=== PATIENT | female | born 1970 | race Caucasian/White ===

== ENCOUNTER 2021-07-30 11:01 | Emergency (ER) | payer MEDICAID ==
[~2021-07-30] VITALS: Ht 165.1 cm; Wt 138.6 kg
[2021-07-30 11:41] VITALS: BP 152/91
== END 2021-07-30 15:35 | disposition home or self-care (01) ==
LOC: ER 11:02
DX: J02.9 Acute pharyngitis, unspecified (principal); R06.02 Shortness of breath; R09.89 Other specified symptoms and signs involving the circulatory and respiratory systems; G89.29 Other chronic pain; Z72.89 Other problems related to lifestyle; Z98.890 Other specified postprocedural states; Z56.0 Unemployment, unspecified
CPT/HCPCS: 87081; 87880; 99283

== ENCOUNTER 2024-08-10 12:19 | Emergency (ER) | payer MEDICAID, OTHER ==
[~2024-08-10] VITALS: Ht 170.2 cm; Wt 120.5 kg
[2024-08-10 12:45] VITALS: BP 149/86; PULSE 73; TEMP 97.5; O2SAT 99
--- NOTE | 2024-08-10 13:40 | Physician Documentation ---
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 She reports that approximately three months ago, she was securing her naked wet during a pseudo-seizure from shower to bedroom and sustained pain to the low back. Sees worker's comp doctor. Expresses frustration today that her pain is inadequately managed. She reports that she is taking naproxen, acetaminophen, and an unknown muscle relaxant. Her pain persists. However, she denies any danger signs to include numbness in the groin, new incontinence, dragging of the foot. Medication Reconciliation Allergies: Coded Allergies: No Known Allergies (Unverified , 08/10/24) Scheduled Gabapentin (Gabapentin), 1 CAP PO Q8H Scheduled PRN Hydrocodone Bit/Acetaminophen (Hydrocodon-Acetaminophen 5-325), 1 TAB PO TID PRN PRN for pain Past Medical History Past Medical History: Thyroid (unspecified), Chronic Back Pain Past Surgical History: orthopedic surgeries Alcohol Use: Occasionally Drug Use: none Lives with: Spouse Lives In: Home Occupation: unemployed Review of Systems ROS As stated above in the HPI, otherwise all systems are reviewed and negative. Physical Exam Physical Exam Vital Signs: Temperature: 97.5, Source: Temporal, Heart Rate: 73, Respiratory Rate: 18, BP: 149/86, Pulse Oximetry: 99, Weight: 120.450 Oxygen Flow Rate: 0 Physical Exam General: Alert, no apparent distress. HEENT: PERRL, EOMI, no injection, moist mucous membranes. Neck: Full range of motion. Respiratory: Lungs clear, no respiratory distress. Chest: No accessory muscle use. Back: No midline tenderness but is diffusely TTP to musculature adjacent to lumbar spine with palpable spasm. Cardiovascular: Regular rate and rhythm, no murmurs. Gastrointestinal: Soft, nontender, nondistended. Bowels sounds present. Extremities: Normal range of motion, no deformity. Neurologic: Oriented x4. Symmetrical patellar reflexes. Psychiatric: Normal mood and affect. Skin: Normal color, warm and dry. No edema, no ecchymosis. Progress Results/Orders Results/Orders Completed Orders - GIANLUCA ESCALANTE NP Ketorolac Trometh 30mg/Ml Vial (Toradol (08/10/24 14:05) Medications Received in ER Medications (Trade) Dose Ordered Sig/Bennie Route PRN Reason Start Time Stop Time Status Last Admin Dose Admin (Toradol inj. 30mg/ml) 30 mg ONCE ONCE IM 08/10/24 14:05 08/10/24 14:06 DC 08/10/24 14:18 30 MG Vital Signs 08/10/24 08/10/24 12:45 14:18 Temp 97.5 Pulse 73 Resp 18 15 B/P (MAP) 149/86 Pulse Ox 99 O2 Flow Rate 0 Medical Decision Making Differential Diagnosis 54-year-old female presented primarily due to concerns for an adequately controlled pain. She denied any danger signs, imaging was not warranted. She ambulated without difficulty although was reporting stiffness and pain to the low back when doing so. Her reflexes were symmetrical. She had no report of new incontinence. She had no paresthesia or dragging of the foot. She is instructed to follow up with the worker's comp provider and return if worse. Departure Time of Disposition: 14:03 Disposition: 01 HOME / SELF CARE / HOMELESS Impression: Primary Impression: Low back pain Qualified Codes: M54.50 - Low back pain, unspecified; G89.29 - Other chronic pain Discharge Instructions: Chronic Back Pain, Back Exercises Additional Instructions: See your worker's comp doctor soon for followup. Try adding gabapentin to your pain management regimen along with lidocaine patches. You got a toradol shot in the ER, so no further NSAIDs x 24 hours (Naproxen, Motrin, Ibuprofen, etc). You are being given a few hydrocodone for sparing occasional use with no driving after use x 6 hrs. These are opioids and have risk of addiction, respiratory depression, and constipation. Take stool softeners when using. Follow through with the planned MRI. Return if worse such as with new incontinence or numbness/tingling in the groin area. Referrals: NO PRIMARY CARE PROVIDER (PCP) Prescriptions Hydrocodone Bit/Acetaminophen (Hydrocodon-Acetaminophen 5-325) 5 Mg-325 Mg Tablet 1 TAB PO TID PRN PRN for pain for 3 Days, #6 TAB Prov: GIANLUCA ESCALANTE NP 08/10/24 Gabapentin (Gabapentin) 100 Mg Capsule 1 CAP PO Q8H for pain for 10 Days, #30 CAP 0 Refills Prov: GIANLUCA ESCALANTE NP 08/10/24 Education Educated: Patient Educated regarding: diagnosis, treatment, prognosis, need for follow up Signature Scribe Signature: no scribe Attestation: The note accurately reflects work and decisions made by me.Gianluca Golden NP 08/10/24 14:51 GIANLUCA ESCALANTE NP Aug 10, 2024 13:40
[2024-08-10] MEDS ORDERED: GABA-530 PO (14:06)
[2024-08-10] MEDS ORDERED: HYDR-3964 PO (14:06)
[2024-08-10 14:18] VITALS: RESP 15
[2024-08-10] MEDS: ketorolac trometh 30MG/ML vial 30 MG/ML VIAL IM ONE (14:18)
== END 2024-08-10 14:23 | disposition home or self-care (01) ==
LOC: ER 12:20
DX: M54.50 Low back pain, unspecified (principal)
CPT/HCPCS: 96372; 99283; J1885

== ENCOUNTER 2024-08-31 12:55 | Emergency (ER) | payer MEDICAID, OTHER ==
[~2024-08-31] VITALS: Ht 165.1 cm; Wt 118.2 kg
[~2024-08-31 12:55] MED LIST: GABA-530 PO
--- NOTE | 2024-08-31 12:56 | Physician Documentation ---
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 She notes that this morning, she was helping him. In the context of this, she sustained lower pelvic pain. Since that time, she has felt that her vagina is falling out. she has also noted some blood when wiping, but does note that this appears to be rectal and that she does have a history of hemorrhoids. She denies chills or fever, chest pain or shortness of breath. She denies numbness in the groin. Medication Reconciliation Allergies: Coded Allergies: No Known Allergies (Unverified , 08/31/24) Scheduled Gabapentin (Gabapentin), 1 CAP PO Q8H Past Medical History Past Medical History: Thyroid (unspecified), Chronic Back Pain Past Surgical History: orthopedic surgeries Alcohol Use: Occasionally Drug Use: none Lives with: Spouse Lives In: Home Occupation: unemployed Review of Systems ROS As stated above in the HPI, otherwise all systems are reviewed and negative. Physical Exam Physical Exam General: Alert, no apparent distress. Neck: Full range of motion. Respiratory: Lungs clear, no respiratory distress. Chest: No accessory muscle use. Cardiovascular: Regular rate and rhythm, no murmurs. Gastrointestinal: Soft, nontender, nondistended. Bowels sounds present. Pelvic: Grade I cystocele. Rectum: Small external hemorrhoid Extremities: Normal range of motion, no deformity. Neurologic: Oriented x4. Psychiatric: Normal mood and affect. Skin: Normal color, warm and dry. No edema, no ecchymosis. Procedures Procedures Pelvic exam done. Normal external female genitalia. Grade I cystocele. No unusual vaginal discharge. Medical Decision Making Additional Comments This is a 54-year-old female who has an upcoming lumbar spine MRI pertinent to her recent onset of low back pain. She denies danger signs such as drragging of a foot, new numbness in the groin, incontinence. She denies IV drug use and has had no fevers. On exam, she was found to have a mild cystocele pertinent to her concerns for pelvic pressure. She is also found to have a small external hemorrhoid, and does report some intermittent bleeding into the toilet. She has a primary care follow up appointment. She will be provided with gabapentin, tizanidine, lidocaine patches for pain. She does also have naproxen at home. She is to return for danger signs. Departure Time of Disposition: 15:06 Disposition: 01 HOME / SELF CARE / HOMELESS Impression: Primary Impression: Cystocele Additional Impression: Lumbar back pain with radiculopathy affecting right lower extremity Discharge Instructions: Lumbar Strain Additional Instructions: Please see your PCP for followup. Request a referral to PT/spinal specialist. Use the prescribed medications. Keep your upcoming MRI appt of the lumbar spine. Return for danger signs such as new incontinence, numbness in the groin, other concerns you're getting worse. See gynecology to discuss your cystocele concerns. (mild bladder prolapse) Referrals: NO PRIMARY CARE PROVIDER (PCP) Prescriptions Tizanidine Hcl (Zanaflex) 2 Mg Tablet 1 TAB PO HS for 30 Days, #30 TAB 0 Refills Prov: GIANLUCA ESCALANTE NP 08/31/24 Lidocaine (Lidocaine) 5 % Adh..patch 1 PATCH TOP DAILY for 30 Days, #30 PATCH 0 Refills Prov: GIANLUCA ESCALANTE NP 08/31/24 Gabapentin (Gabapentin) 100 Mg Capsule 1-2 CAP PO Q8H for pain for 10 Days, #30 CAP 0 Refills Prov: GIANLUCA ESCALANTE NP 08/31/24 Education Educated: Patient Educated regarding: diagnosis, treatment, prognosis, need for follow up Signature Scribe Signature: no scribe Attestation: The note accurately reflects work and decisions made by me.Gianluca Golden NP 08/31/24 13:20 GIANLUCA ESCALANTE NP Aug 31, 2024 12:56
[2024-08-31 13:12] VITALS: TEMP 97.4
[2024-08-31] MEDS ORDERED: LIDO700A47 TOP (15:08)
[2024-08-31] MEDS ORDERED: TIZA-189 PO (15:08)
[2024-08-31] MEDS: ketorolac trometh 30MG/ML vial 30 MG/ML VIAL IM ONE (15:31)
[2024-08-31 15:36] VITALS: BP 152/65; PULSE 70; RESP 16; O2SAT 100
== END 2024-08-31 15:38 | disposition home or self-care (01) ==
LOC: ER 12:56
DX: N81.10 Cystocele, unspecified (principal); M54.16 Radiculopathy, lumbar region; Z56.0 Unemployment, unspecified; Z72.89 Other problems related to lifestyle
CPT/HCPCS: 96372; 99284; J1885

== ENCOUNTER 2024-09-02 13:54 | Outpatient (CLI) | payer OTHER ==
[~2024-09-02 13:54] MED LIST changes: +LIDO700A47 TOP; +TIZA-189 PO
--- NOTE | 2024-09-02 17:38 | RADIOLOGY REPORT ---
PROCEDURE: MR MRI LUMBAR SPINE INDICATION: SPRAIN LUMBAR SPINE Exam Date: 09/02/2024 01:48 PM COMPARISON: None TECHNIQUE: MRI lumbar spine without intravenous contrast. FINDINGS: The lumbar alignment is intact. There are degenerative endplate changes including modic endplate ch anges with anterior and lateral osteophytes throughout the lumbar spine. The visualized distal spinal cord and conus medullaris are within normal limits. The conus medullaris appears to terminate withi n normal limits. The visualized retroperitoneal and paraspinal soft tissues are unremarkable. The following axial levels are detailed below: T12-L1: Unremarkable. L1-L2: Unremarkable. L2-L3: Unremarkable. L3-L4: There is a mild circumferential disc bulge complicated by facet arthropathy associated with mild bilateral neuroforaminal stenosis. No significant central canal stenosis. L4-L5: There is a moderate circumferential disc bulge complicated by facet arthropathy associated w ith mild to moderate bilateral neuroforaminal stenosis. No significant central canal stenosis. L5-S1: There is a moderate circumferential disc bulge complicated by facet arthropathy associated wi th mild to moderate bilateral neuroforaminal stenosis. No significant central canal stenosis. IMPRESSION: 1. Degenerative disease greatest in the lower lumbar spine. No significant central canal stenosis. Neural foraminal stenosis as above. HS:Y
== END 2024-09-02 23:59 | disposition home or self-care (01) ==
LOC: MRI02 13:54
PROVIDERS: ATTEND Physician Assistant Medical
DX: S33.5XXA Sprain of ligaments of lumbar spine, initial encounter (principal); S23.9XXA Sprain of unspecified parts of thorax, initial encounter; S39.011A Strain of muscle, fascia and tendon of abdomen, initial encounter; M47.27 Other spondylosis with radiculopathy, lumbosacral region; M48.07 Spinal stenosis, lumbosacral region; X58.XXXA Exposure to other specified factors, initial encounter; Y93.89 Activity, other specified; Y92.89 Other specified places as the place of occurrence of the external cause; Y99.8 Other external cause status
CPT/HCPCS: 72148

== ENCOUNTER 2024-11-24 21:45 | Emergency (ER) | payer MEDICAID, OTHER ==
[~2024-11-24] VITALS: Ht 165.1 cm; Wt 208.2 kg
[2024-11-24] MEDS ORDERED: PRED20TA PO (22:58)
--- NOTE | 2024-11-24 23:02 | Physician Documentation ---
History of Present Illness ~ General Chief Complaint: Abdominal Pain Stated Complaint: BLADDER ISSUES Time Seen by MD: 22:35 [facility]: [facility] History of Present Illness Initial Comments 54-year-old female who presents to the emergency department for pain management of acute on chronic lower back pain. Secondary complaint of bladder prolapse wh ich is chronic in nature as she is pending referral to [facility] was. Patient saw her primary care physician and received a Toradol injection and was provided a prescription for gabapentin for which she has not obtained. Reports that it has not worked in the past. Clinical suspicion that she is having acute on chronic pain episode at this time along with some situation of life crisis just due to her being ill. No reported fevers, myalgias or recent illness or injury. Medication Reconciliation Allergies: Coded Allergies: No Known Allergies (Unverified , 08/31/24) Scheduled Gabapentin (Gabapentin), 1 CAP PO Q8H Gabapentin (Gabapentin), 1-2 CAP PO Q8H Lidocaine (Lidocaine), 1 PATCH TOP DAILY Tizanidine Hcl (Zanaflex), 1 TAB PO HS Past Medical History Past Medical History: Thyroid (unspecified), Chronic Back Pain Past Surgical History: orthopedic surgeries Alcohol Use: Occasionally Drug Use: none Lives with: Spouse Lives In: Home Occupation: unemployed Review of Systems All Other Systems at this time: Reviewed and Negative Constitutional: Denies: chills, fever Musculoskeletal: Reports: back pain Physical Exam Physical Exam Vital Signs: Temperature: 97.8, Source: Temporal, Heart Rate: 83, Respiratory Rate: 16, BP: 142/93, Pulse Oximetry: 97, Weight: 208.200 Oxygen Flow Rate: 0 General Appearance: alert, WD/WN, moderate distress General Appearance Anxious Head: normal inspection Face: normal inspection Pupils/EOM/Fundus: PERRLA Neck: non-tender Respiratory: no respiratory distress Chest: no accessory muscle use Cardiovascular: normal peripheral pulses Back: muscle spasm, + straight leg raise, other (Left lower lumbar paraspinous); No: vertebral tenderness Extremities: normal range of motion Neurologic: oriented x4 Motor / Sensory: no motor deficit, no sensory deficit Progress Results/Orders Results/Orders Orders - BECKI CHANDRA PAC Prednisone Tablet (Prednisone Tablet) (11/24/24 22:55) Hydrocodone/Apap 5/325mg Tab ([place] 5/32 (11/24/24 22:55) Vital Signs 11/24/24 21:58 Temp 97.8 Pulse 83 Resp 16 B/P (MAP) 142/93 Pulse Ox 97 O2 Flow Rate 0 Medical Decision Making Differential Diagnosis 54-year-old female awaiting referral to chronic pain. Long standing history of acute on chronic lower back pain. Secondary complaint of needing bladder sling and in his awaiting referral to [facility]. Today in the emergency department received prednisone 60 mg p.o. and abortive pain management in the form of Mick[place]. Recommendations are to obtain a prescription gabapentin which awaits for her and continue with the steroid burst for the next four days. She is to follow up with the primary care physician. No clinical suspicion for cauda equina syndrome, diskitis and/or epidural abscess. Patient understands that she is likely to benefit from chronic pain medications specifically that of methadone. Discharged in the emergency department grossly neurologically intact without focal neuro deficits and steady gait. Departure Disposition: HOME / SELF CARE / HOMELESS Impression: Primary Impression: Low back pain Qualified Codes: M54.41 - Lumbago with sciatica, right side; G89.29 - Other chronic pain Condition: Stable Discharge Instructions: Chronic Back Pain Additional Instructions: Tonight in the emergency department you received the 1st dose of prednisone and two [place] tablets. I have sent a prescription to your pharmacy for additional four days of prednisone. Please obtain your prescription for gabapentin and begin as directed. Keep your follow up appointment with the [facility] and with your pain management for consideration of methadone for pain management. Thank you for visiting emergency department [facility]. Referrals: NO PRIMARY CARE PROVIDER (PCP) Prescriptions Prednisone* (Prednisone*) 20 Mg Tablet 3 TAB PO DAILY for 4 Days, #12 TAB Prov: BECKI CHANDRA PAC 11/24/24 Education Educated: Patient Educated regarding: diagnosis, treatment Signature Scribe Signature: / Attestation: / BECKI CHANDRA PAC Nov 24, 2024 23:02
[2024-11-24] MEDS: HYDROcodone/acetaminophen 5mg/325mg tablet PO ONE (23:06)
[2024-11-24 23:17] VITALS: BP 140/90; PULSE 82; RESP 18; TEMP 98.6; O2SAT 99
== END 2024-11-24 23:18 | disposition home or self-care (01) ==
LOC: ER 21:45
DX: G89.29 Other chronic pain (principal); M54.50 Low back pain, unspecified; Z79.899 Other long term (current) drug therapy; Z56.0 Unemployment, unspecified; Z72.89 Other problems related to lifestyle
CPT/HCPCS: 99283; J7512